=== PATIENT | male | born 1960 | race American Indian/Alaskan Native ===

== ENCOUNTER 2020-06-12 11:17 | Emergency (ER) | payer MEDICARE ==
[2020-06-12 11:43] VITALS: BP 93/58
[2020-06-12] MEDS ORDERED: SODIUM CHLORIDE 0.9% 1000 ML 1,000 ML IV ONE (12:47)
--- NOTE | 2020-06-12 12:54 | Emergency Department Report ---
ED N/V/D HPI - General Chief complaint: Nausea/Vomiting/Diarrhea Stated complaint: DIARRHEA/SEIZURE/CLOUDY THOUGHTS Time Seen by Provider: 06/12/20 12:45 Source: patient Mode of arrival: Ambulatory Limitations: No Limitations - History of Present Illness Initial comments: 59-year-old -[place] male with a known history of seizure disorder currently takes Keppra is a patient at [facility] presents emergency department complaining of a 2-year history of waxing and waning diarrhea which he states is been reemerged this last 2 to 3days. Ports no abdominal pain, no hemoptysis no hematemesis no hematochezia. Ports no nausea vomiting. Reports no fever, chills, sweats no chest pain or palpitations. MD complaint: diarrhea Associated Abdominal Pain: No Radiation: none Severity: mild Consistency: constant Worsens with: none Associated Symptoms: denies: chest pain, headaches, loss of appetite, rash, dysuria, shortness of breath, syncope - Related Data Allergies Allergy/AdvReac Type Severity Reaction Status Date / Time No Known Allergies Allergy Unverified 06/12/20 11:42 ED Review of Systems ROS: Stated complaint: DIARRHEA/SEIZURE/CLOUDY THOUGHTS Other details as noted in HPI Comment: All other systems reviewed and negative ED Past Medical Hx - Past Medical History Previous Medical History?: Yes Hx Seizures: Yes - Social History Smoking Status: Never Smoker Substance Use Type: Alcohol ED Physical Exam - General Limitations: No Limitations General appearance: alert, in no apparent distress - Head Head exam: Present: atraumatic, normocephalic - Eye Eye exam: Present: normal appearance, PERRL, EOMI Pupils: Present: normal accommodation - ENT ENT exam: Present: normal exam, normal orophraynx, mucous membranes moist, TM's normal bilaterally - Neck Neck exam: Present: normal inspection, full ROM - Respiratory Respiratory exam: Present: normal lung sounds bilaterally. Absent: respiratory distress - Cardiovascular Cardiovascular Exam: Present: regular rate, normal rhythm. Absent: systolic murmur, diastolic murmur, rubs, gallop - GI/Abdominal GI/Abdominal exam: Present: soft, normal bowel sounds - Rectal Rectal exam: Present: deferred - Extremities Exam Extremities exam: Present: normal inspection - Back Exam Back exam: Present: normal inspection - Neurological Exam Neurological exam: Present: alert, oriented X3 - Psychiatric Psychiatric exam: Present: normal affect, normal mood - Skin Skin exam: Present: warm, dry, intact, normal color. Absent: rash ED Course Vital Signs 06/12/20 11:42 Temperature 97.8 F Pulse Rate 77 Respiratory 16 Rate Blood Pressure 93/58 [Right] O2 Sat by Pulse 100 Oximetry ED Medical Decision Making - Lab Data Result diagrams: 06/12/20 12:49 06/12/20 12:49 - Medical Decision Making 59-year-old F [place] male with a known history of alcohol abuse and seizure disorder presents emergency department complaining of acute on chronic diarrhea. Awake alert and oriented ambulatory speaking in full sentences during his whole visit last drink was late last night. Laboratory findings showed a pretty benign chemistry with exception of elevated hepatic function studies in the form of his AST and ALT. Discussed with this in great detail with Mr. Cadet which he is aware and is due to follow-up at the [facility]. Also I discussed with him about his habits EtOH abuse and the need to reduce. He was given 1 L of normal saline due to his hypotension. Patient presents to the emergency department with nausea and diarrhea, differential diagnosis includes possible acute gastroenteritis. Abdominal examination without peritoneal signs. No evidence of surgical abdomen or other acute medical emergency including bowel obstruction, viscus perforation, vascular catastrophe, appendicitis, cholecystitis at this time. Presentation not consistent with other acute emergent causes of vomiting and diarrhea at this time. No indication for abdominal imaging Plan supportive care, oral/IV rehydration, patient education about EtOH cessation and reassess. Will not treat with Lomotil due to his elevated liver enzymes but advised him on dietary changes to help compensate his current symptoms Critical care attestation.: If time is entered above; I have spent that time in minutes in the direct care of this critically ill patient, excluding procedure time. ED Disposition Clinical Impression: H/O ETOH abuse, Elevated liver function tests, Diarrhea, Dehydration Disposition: -01 TO HOME OR SELFCARE Is pt being admited?: No Does the pt Need Aspirin: No Condition: Stable Instructions: Abuse of Alcohol (ED), Cirrhosis (ED), Chronic Diarrhea (ED), Acute Diarrhea (ED) Referrals: PRIMARY CARE, [Primary Care Provider] - 3-5 Days [facility] [Outside] - 3-5 Days (Please follow-up with your primary care at the [facility] to continue your alcohol abuse treatment and seizure treatment disorder. Use [id number] medications for your diarrhea)
[2020-06-12 13:16] LABS: Basophils % (Auto) 1.4 % (0.0-1.8); Eosinophils # (Auto) 0.2 K/mm3 (0.0-0.4); Hematocrit 38.4 % (35.5-45.6); Hemoglobin 13.1 gm/dl (11.8-15.2); Lymphocytes # (Auto) 1.1 K/mm3 (1.2-5.4); Lymphocytes % (Auto) 35.9 % (13.4-35.0); Mean Corpuscular HGB Conc 34 % (32-34); Mean Corpuscular Volume 103 fl (84-94); Monocytes # (Auto) 0.4 K/mm3 (0.0-0.8); Red Blood Count 3.74 M/mm3 (3.65-5.03); Red Cell Distribution Width 13.5 % (13.2-15.2)
[2020-06-12 13:18] LABS: Platelet Count 97 K/mm3 (140-440)
[2020-06-12 13:36] LABS: Alanine Aminotransferase 170 units/L (7-56); Albumin 3.8 g/dL (3.9-5); BUN/Creatinine Ratio 10; Blood Urea Nitrogen 9 mg/dL (9-20); Calcium 8.8 mg/dL (8.4-10.2); Hemolysis Index 15
== END 2020-06-12 15:17 | disposition home or self-care (01) ==
LOC: ED 11:17
DX: F10.10 Alcohol abuse, uncomplicated (principal); R94.5 Abnormal results of liver function studies; E86.0 Dehydration; R19.7 Diarrhea, unspecified; Z86.69 Personal history of other diseases of the nervous system and sense organs
CPT/HCPCS: 36415; 80053; 85025; 96360; 96361; 99283; J7030

== ENCOUNTER 2020-07-18 13:32 | Emergency (ER) | payer MEDICARE ==
[2020-07-18 13:51] VITALS: BP 134/76
--- NOTE | 2020-07-18 16:15 | Emergency Department Report ---
ED General Adult HPI - General Chief complaint: Extremity Injury, Upper Stated complaint: LFT ARM PAIN/DIARRHEA/STOMACH Time Seen by Provider: 07/18/20 16:10 Source: patient Mode of arrival: Ambulatory Limitations: No Limitations - History of Present Illness Initial comments: 59-year-old -E[place]ian male comes in complaining of hard of hearing to his left ear that started this morning. Patient states that he has hearing loss in his right ear and states that he has had surgery but does not know what type of surgery. Patient reports that he has a past medical history of seizure disorder and currently is take Keppra. He also reports acid reflux but does not take anything. -: This morning Location: left (Your) Improves with: none Associated Symptoms: denies other symptoms Treatments Prior to Arrival: none - Related Data Allergies Allergy/AdvReac Type Severity Reaction Status Date / Time No Known Allergies Allergy Unverified 06/12/20 11:42 ED Review of Systems ROS: Stated complaint: LFT ARM PAIN/DIARRHEA/STOMACH Other details as noted in HPI Comment: All other systems reviewed and negative ED Past Medical Hx - Past Medical History Previous Medical History?: Yes Hx Seizures: Yes - Surgical History Past Surgical History?: Yes - Social History Smoking Status: Never Smoker Substance Use Type: Alcohol ED Physical Exam - General Limitations: No Limitations General appearance: alert, in no apparent distress - Head Head exam: Present: atraumatic, normocephalic - Eye Eye exam: Present: normal appearance - ENT ENT exam: Present: mucous membranes moist - Expanded ENT Exam Expanded TM/Canal exam: Cerumen Impaction: Left TM (Very soft whitish soft wax), Canal Discharge: Left TM - Neck Neck exam: Present: normal inspection, full ROM - Neurological Exam Neurological exam: Present: alert, oriented X3, normal gait - Psychiatric Psychiatric exam: Present: normal affect, normal mood - Skin Skin exam: Present: warm, dry, intact, normal color. Absent: rash ED Course Vital Signs 07/18/20 13:49 Temperature 97.6 F Pulse Rate 82 Respiratory 20 Rate Blood Pressure 134/76 O2 Sat by Pulse 100 Oximetry ED Medical Decision Making - Medical Decision Making 59-year-old -[place]ian male comes in complaining of hard of hearing to his left ear that started this morning. Patient states that he has hearing loss in his right ear and states that he has had surgery but does not know what type of surgery. Patient reports that he has a past medical history of seizure disorder and currently is take Keppra. He also reports acid reflux but does not take a nything. Discussed with patient that a referral to otolaryngology will be appropriate as patient does not have a cerumen impaction for removal of wax. Nurse reports that patient eloped before discharge paperwork. Critical care attestation.: If time is entered above; I have spent that time in minutes in the direct care of this critically ill patient, excluding procedure time. ED Disposition Clinical Impression: Ear discharge of left ear Disposition: Z-07 ELOPED Is pt being admited?: No Does the pt Need Aspirin: No Condition: Stable
== END 2020-07-18 16:10 | disposition left against medical advice (07) ==
LOC: ED 13:32
DX: H92.12 Otorrhea, left ear (principal); K21.9 Gastro-esophageal reflux disease without esophagitis; R56.9 Unspecified convulsions
CPT/HCPCS: 99281

== ENCOUNTER 2021-07-22 07:25 | Emergency (ER) | payer MEDICARE ==
[2021-07-22 07:33] VITALS: BP 121/78
[2021-07-22] MEDS ORDERED: ONDANSETRON 4 MG ODT TAB PO ONE (07:41)
[2021-07-22] MEDS ORDERED: FAMOTIDINE 20 MG TAB PO ONE (07:41)
--- NOTE | 2021-07-22 07:46 | Emergency Department Report ---
ED Abdominal Pain HPI - General Chief Complaint: Seizure Stated Complaint: FEELS LIKE GOING TO HAVE SEIZURE Time Seen by Provider: 07/22/21 07:33 Source: patient Mode of arrival: Stretcher Limitations: No Limitations - History of Present Illness Initial Comments: CC: "something is wrong HPI: This is a 60 yo male with hx of seizure alcohol dependence and homelessness who presents with vomiting, diarrhea. His mouth began to water. He was concerned for impending seizure. He has abdominal pain. Generalized. Dull. Mild. No radiation. He has loss his sense of taste and smell. He took his home dose of Keppra 3 hours prior to arrival. He was on the [employer] [place] when he became ill. [place] train [place] the [place]. He asked the security at [place] to call EMS. He was tested for COVID at [facility] last month. No known hx of COVID. Last drink of alcohol yesterday. MD Complaint: abdominal pain -: Gradual, Last night Location: diffuse Radiation: none Migration to: no migration Severity: mild Quality: aching, dull Consistency: constant Improves With: nothing Worsens With: nothing Associated Symptoms: nausea, vomiting, diarrhea - Related Data Previous Rx's Medication Instructions Recorded Last Taken Type Omeprazole 40 mg PO DAILY 30 Days #30 07/22/21 Unknown Rx capsule. Ondansetron [Zofran Odt] 4 mg PO Q8HR PRN #10 tab.rapdis 07/22/21 Unknown Rx Allergies Allergy/AdvReac Type Severity Reaction Status Date / Time No Known Allergies Allergy Unverified 06/12/20 11:42 ED Review of Systems ROS: Stated complaint: FEELS LIKE GOING TO HAVE SEIZURE Other details as noted in HPI Comment: All other systems reviewed and negative Constitutional: denies: chills, fever Respiratory: denies: cough Gastrointestinal: abdominal pain, nausea, vomiting, diarrhea ED Past Medical Hx - Past Medical History Previous Medical History?: Yes Hx Seizures: Yes - Surgical History Past Surgical History?: No - Social History Smoking Status: Never Smoker Substance Use Type: Alcohol - Medications Home Medications: Home Medications Medication Instructions Recorded Confirmed Last Taken Type Omeprazole 40 mg PO DAILY 30 Days #30 07/22/21 Unknown Rx capsule.dr Nicholsondansetron [Zofran Odt] 4 mg PO Q8HR PRN #10 tab.rapdis 07/22/21 Unknown Rx ED Physical Exam - General Limitations: No Limitations General appearance: alert, in no apparent distress, other (Appears chronically ill, disheveled clothing, 3 large bags at the bedside) - Head Head exam: Present: atraumatic, normocephalic - Eye Eye exam: Present: conjunctival injection - ENT ENT exam: Present: mucous membranes moist - Neck Neck exam: Present: normal inspection. Absent: tenderness, meningismus - Respiratory Respiratory exam: Present: normal lung sounds bilaterally. Absent: respiratory distress, wheezes, rales, rhonchi - Cardiovascular Cardiovascular Exam: Present: regular rate, normal rhythm, normal heart sounds. Absent: systolic murmur, diastolic murmur, rubs, gallop - GI/Abdominal GI/Abdominal exam: Present: soft, normal bowel sounds. Absent: distended, tenderness, guarding, rebound - Rectal Rectal exam: Present: deferred - Extremities Exam Extremities exam: Present: normal inspection - Neurological Exam Neurological exam: Present: alert, oriented X3 - Psychiatric Psychiatric exam: Present: normal affect, normal mood - Skin Skin exam: Present: warm, dry, intact, normal color. Absent: rash ED Course Vital Signs 07/22/21 07:32 Temperature 98.7 F Pulse Rate 77 Respiratory 16 Rate Blood Pressure 121/78 [Right] ED Medical Decision Making - Lab Data Result diagrams: 07/22/21 07:48 07/22/21 07:48 - Medical Decision Making CBC within normal limits with exception of mild anemia. AST ALT chronically elevated suspect alcoholic liver disease. Lipase equivocal range. Patient does not have severe pain to indicate acute pancreatitis. Differential diagnosis includes pancreatitis, peptic ulcer disease, alcoholic gastritis. Prescribed Zofran and omeprazole. No evidence of alcohol withdrawal. In the emergency department patient received famotidine and Zofran. Critical care attestation.: If time is entered above; I have spent that time in minutes in the direct care of this critically ill patient, excluding procedure time. ED Disposition Clinical Impression: Gastritis Disposition: HOME / SELF CARE / HOMELESS Is pt being admited?: No Does the pt Need Aspirin: No Condition: Stable Instructions: Gastritis, Adult, [id number] Prescriptions: Omeprazole 40 mg PO DAILY 30 Days #30 capsule. Ondansetron [Zofran Odt] 4 mg PO Q8HR PRN #10 tab.rapdis PRN Reason: Nausea Referrals: CARBUCCIA,JUAN CARLOS, MD [Staff Physician] - 3-5 Days
[2021-07-22 08:09] LABS: Basophils # (Auto) 0.1 K/mm3 (0.0-0.1); Basophils % (Auto) 1.6 % (0.0-1.8); Eosinophils # (Auto) 0.2 K/mm3 (0.0-0.4); Eosinophils % (Auto) 5.1 % (0.0-4.3); Hemoglobin 10.7 gm/dl (11.8-15.2); Lymphocytes # (Auto) 1.6 K/mm3 (1.2-5.4); Lymphocytes % (Auto) 43.1 % (13.4-35.0); Mean Corpuscular HGB Conc 33 % (32-34); Mean Corpuscular Volume 96 fl (84-94); Monocytes # (Auto) 0.5 K/mm3 (0.0-0.8); Monocytes % (Auto) 12.8 % (0.0-7.3); Platelet Count 150 K/mm3 (140-440); Red Blood Count 3.34 M/mm3 (3.65-5.03); Red Cell Distribution Width 16.5 % (13.2-15.2)
[2021-07-22 08:31] LABS: Alanine Aminotransferase 100 units/L (7-56); Albumin 3.5 g/dL (3.9-5); BUN/Creatinine Ratio 9; Blood Urea Nitrogen 7 mg/dL (9-20); Calcium 8.6 mg/dL (8.4-10.2); Hemolysis Index 7
== END 2021-07-22 08:55 | disposition home or self-care (01) ==
LOC: ED 07:25
DX: K29.70 Gastritis, unspecified, without bleeding (principal); R56.9 Unspecified convulsions
CPT/HCPCS: 36415; 80053; 83690; 85025; 99283; Q0162

== ENCOUNTER 2021-11-24 15:48 | Emergency (ER) | payer MEDICARE ==
[2021-11-24 17:48] VITALS: BP 113/73
[2021-11-24 19:02] LABS: Basophils # (Auto) 0.1 K/mm3 (0.0-0.1); Eosinophils # (Auto) 0.2 K/mm3 (0.0-0.4); Eosinophils % (Auto) 3.4 % (0.0-4.3); Monocytes # (Auto) 0.6 K/mm3 (0.0-0.8)
[2021-11-24 19:30] LABS: Basophils % (Auto) 1.2 % (0.0-1.8); Hematocrit 35.1 % (35.5-45.6); Hemoglobin 10.9 gm/dl (11.8-15.2); Lymphocytes % (Auto) 46.1 % (13.4-35.0); Mean Corpuscular HGB Conc 31 % (32-34); Mean Corpuscular Volume 90 fl (84-94); Platelet Count 168 K/mm3 (140-440); Red Blood Count 3.92 M/mm3 (3.65-5.03); Red Cell Distribution Width 20.2 % (13.2-15.2)
[2021-11-24 19:31] LABS: Lymphocytes # (Auto) 2.6 K/mm3 (1.2-5.4)
[2021-11-24 20:26] LABS: Alanine Aminotransferase 107 units/L (7-56); Albumin 3.7 g/dL (3.9-5); BUN/Creatinine Ratio 14; Blood Urea Nitrogen 13 mg/dL (9-20); Calcium 8.8 mg/dL (8.4-10.2); Hemolysis Index 14
[2021-11-24] MEDS ORDERED: KETOROLAC 30 MG/1 ML INJ IV ONE (21:32)
[2021-11-24] MEDS ORDERED: SODIUM CHLORIDE 0.9% 1000 ML 1,000 ML IV ONE (21:32)
[2021-11-24] MEDS ORDERED: FAMOTIDINE 20 MG/2 ML INJ IV ONE (21:32)
[2021-11-24] MEDS ORDERED: ONDANSETRON 4 MG/2 ML INJ IV ONE (21:32)
[2021-11-24 21:59] LABS: Bilirubin,Urine NEG (Negative); Blood,Urine NEG (Negative); Color,Urine Yellow (Yellow); Protein,Urine <15 mg/dL mg/dL (Negative); Urobilinogen,Urine < 2.0 mg/dL (<2.0)
--- NOTE | 2021-11-24 22:02 | Emergency Department Report ---
ED Abdominal Pain HPI - General Chief Complaint: Abdominal Pain Stated Complaint: GENERAL ILLNESS Source: patient Mode of arrival: Ambulatory Limitations: No Limitations - History of Present Illness Initial Comments: Patient is a 60-year-old -[place] male with a history of chronic alcohol abuse and seizures who presents to the ED with complaint of acute onset persistent nausea, vomiting, diarrhea and epigastric abdominal pain for the last 12 hours. Patient states that he woke up with persistent nausea and vomiting and diarrhea with epigastric pain which has been persistent throughout the day. Patient states that he has had multiple vomiting and diarrhea episodes and that the pain in the epigastric area worsens with vomiting episode. Patient denies hematemesis, hemoptysis, hematochezia, dizziness, syncope, chest pain, shortness of breath, cough, sore throat, fever and chills, headache, syncope or seizures and dizziness. MD Complaint: abdominal pain (Epigastric pain), other (Nausea and vomiting and diarrhea) -: Sudden, hour(s) (12) Location: periumbilical, epigastric Radiation: none Migration to: no migration Severity scale (0 -10): 7 Quality: cramping, sharp Consistency: intermittent Improves With: nothing Worsens With: eating, vomiting Context: possible food poisoning Associated Symptoms: denies other symptoms, nausea, vomiting, diarrhea - Related Data Previous Rx's Medication Instructions Recorded Last Taken Type Omeprazole 40 mg PO DAILY 30 Days #30 07/22/21 Unknown Rx capsule. Ondansetron [Zofran Odt] 4 mg PO Q8HR PRN #10 tab.rapdis 07/22/21 Unknown Rx Dicyclomine [Bentyl] 20 mg PO Q6H PRN #30 tablet 11/24/21 Unknown Rx Famotidine [Pepcid] 20 mg PO Q12H #30 tablet 11/24/21 Unknown Rx Ondansetron [Zofran Odt] 4 mg PO Q8HR PRN #20 tab.rapdis 11/24/21 Unknown Rx Allergies Allergy/AdvReac Type Severity Reaction Status Date / Time No Known Allergies Allergy Unverified 06/12/20 11:42 ED Review of Systems ROS: Stated complaint: GENERAL ILLNESS Other details as noted in HPI Constitutional: denies: chills, fever Eyes: denies: eye pain, eye discharge, vision change ENT: denies: ear pain, throat pain Respiratory: denies: cough, shortness of breath, wheezing Cardiovascular: denies: chest pain, palpitations Endocrine: no symptoms reported Gastrointestinal: abdominal pain, nausea, vomiting, diarrhea Genitourinary: denies: urgency, dysuria Musculoskeletal: denies: back pain, joint swelling, arthralgia Skin: denies: rash, lesions Neurological: denies: headache, weakness, paresthesias Psychiatric: denies: anxiety, depression Hematological/Lymphatic: denies: easy bleeding, easy bruising ED Past Medical Hx - Past Medical History Previous Medical History?: Yes Hx Seizures: Yes - Surgical History Past Surgical History?: No - Social History Smoking Status: Never Smoker Substance Use Type: Alcohol - Medications Home Medications: Home Medications Medication Instructions Recorded Confirmed Last Taken Type Omeprazole 40 mg PO DAILY 30 Days #30 07/22/21 Unknown Rx capsule. Ondansetron [Zofran Odt] 4 mg PO Q8HR PRN #10 tab.rapdis 07/22/21 Unknown Rx Dicyclomine [Bentyl] 20 mg PO Q6H PRN #30 tablet 11/24/21 Unknown Rx Famotidine [Pepcid] 20 mg PO Q12H #30 tablet 11/24/21 Unknown Rx Ondansetron [Zofran Odt] 4 mg PO Q8HR PRN #20 tab.rapdis 11/24/21 Unknown Rx ED Physical Exam - General Limitations: No Limitations General appearance: alert, in no apparent distress - Head Head exam: Present: atraumatic, normocephalic, normal inspection - Eye Eye exam: Present: normal appearance, PERRL, EOMI Pupils: Present: normal accommodation - ENT ENT exam: Present: normal exam, normal orophraynx, mucous membranes moist, TM's normal bilaterally, normal external ear exam - Neck Neck exam: Present: normal inspection, full ROM - Respiratory Respiratory exam: Present: normal lung sounds bilaterally. Absent: respiratory distress, wheezes, rales, stridor, chest wall tenderness, accessory muscle use, decreased breath sounds, prolonged expiratory - Cardiovascular Cardiovascular Exam: Present: regular rate, normal rhythm, normal heart sounds. Absent: systolic murmur, diastolic murmur, rubs, gallop - GI/Abdominal GI/Abdominal exam: Present: soft, tenderness (Palpable mild epigastric tenderness), normal bowel sounds. Absent: guarding, rebound, hyperactive bowel sounds, hypoactive bowel sounds, organomegaly - Extremities Exam Extremities exam: Present: normal inspection, full ROM, normal capillary refill - Back Exam Back exam: Present: normal inspection, full ROM. Absent: tenderness, CVA tenderness (R), CVA tenderness (L), muscle spasm, paraspinal tenderness, vertebral tenderness - Neurological Exam Neurological exam: Present: alert, oriented X3, CN II-XII intact, normal gait, reflexes normal - Psychiatric Psychiatric exam: Present: normal affect, normal mood - Skin Skin exam: Present: warm, dry, intact, normal color. Absent: rash ED Course Vital Signs 11/24/21 17:25 Temperature 97.9 F Pulse Rate 79 Respiratory 18 Rate Blood Pressure 113/73 O2 Sat by Pulse 97 Oximetry ED Medical Decision Making - Lab Data Result diagrams: 11/24/21 18:37 11/24/21 18:37 - Radiology Data Radiology results: report reviewed, [place] [address] Cat Scan Report Signed Patient: PARAG CONNELL MR#: [id number] 2 : 1960 Acct:[id number] Age/Sex: 60 / M ADM Date: 11/24/21 Loc: ED Attending Dr: Ordering Physician: EMMETT SHETH Date of Service: 11/24/21 Procedure(s): CT abdomen pelvis w con Accession Number(s): [id number] cc: EMMETT SHETH CT abdomen pelvis w con INDICATION / CLINICAL INFORMATION: Pt complains of abdominal pain with N/V/D. TECHNIQUE: Axial CT imaging of abdomen and pelvis was obtained with 100 mL Omnipaque 300 IV contrast. Coronal and sagittal reformatted imaging obtained and reviewed. All CT scans at this location are performed using CT dose reduction for ALARA by means of automated exposure control. COMPARISON: None available. FINDINGS: CT abdomen with IV contrast demonstrates normal appearance of the liver, spleen, pancreas, kidneys, and adrenal glands. Gallbladder is unremarkable. Abdominal aorta contains small amount of calcified plaque but is not aneurysmal. CT pelvis with contrast does not demonstrate focal mass, free fluid, or focal inflammatory change. There are several loops of fluid-filled small bowel throughout the pelvis with mild mucosal enhancement. The appearance is very suggestive for enteritis. The colon is unremarkable. Normal appendix is identified in the right lower quadrant. Prostate gland is mildly enlarged. Visualized lung bases are grossly clear. No acute osseous abnormality. IMPRESSION: 1. The appearance of the small bowel within the pelvis is highly suggestive for enteritis. Please correlate with clinical symptoms and presentation. 2. No other significant acute finding. Signer Name: Britta Irene MD Signed: 11/24/2021 10:28 PM Workstation Name: [id number] Transcribed By: Dictated By: Britta Irene MD Electronically Authenticated By: Britta Irene MD Signed Date/Time: 11/24/212227 DD/ 24 TD/TT: - Medical Decision Making This is a 60-year-old -Angolan male with a history of chronic alcohol abuse and seizures who presents to the ED with complaint of acute onset persistent nausea, vomiting, diarrhea and epigastric abdominal pain for the last 12 hours. Patient states that he woke up with persistent nausea and vomiting and diarrhea with epigastric pain which has been persistent throughout the day. Patient states that he has had multiple vomiting and diarrhea episodes and that the pain in the epigastric area worsens with vomiting episode. In the ED, patient is alert and oriented x3 and is not in any distress. Patient is hemodynamically stable. Lab test results were reviewed and showed elevated LFTs, including AST of 191 and ALT of 107 and elevated lipase level of 110. Patient was treated for pain in the ED, also treated for nausea and vomiting and given antacids and also normal saline 1 L IV bolus x1. Abdomen pelvis CT scan showed the appearance of the small bowel within the pelvis is highly suggestive for enteritis. Please correlate with clinical symptoms and presentation. Oth erwise no other significant acute finding. On reevaluation, patient pain is well controlled medication. Patient will discharge home on medications and advised to follow-up with his primary care physician in 5 to 7 days for reevaluation. Patient was also advised to maintain a clear liquid diet for 12 to 24 hours, while taking medications and drinking fluids. Patient was advised to return to the ED immediately if symptoms get worse. - Differential Diagnosis Gastroenteritis; dehydration; GERD; UTI; Critical care attestation.: If time is entered above; I have spent that time in minutes in the direct care of this critically ill patient, excluding procedure time. ED Disposition Clinical Impression: Viral gastroenteritis, Nausea, vomiting and diarrhea, Abdominal pain in male Disposition: 01 HOME / SELF CARE / HOMELESS Is pt being admited?: No Does the pt Need Aspirin: No Condition: Stable Instructions: Viral Gastroenteritis, Adult, [id number], Nausea and Vomiting, Adult, [id number], Diarrhea, Adult, [id number], Abdominal Pain, Adult, [id number] Additional Instructions: Abdomen pelvis CT scan with contrast showed no acute abnormalities except for a pattern of enteritis which is likely viral. Lab test results were reviewed and showed elevated LFTs with his consistent with a viral syndrome. Therefore maintain a clear liquid diet for 12 to 24 hours, drink plenty fluids, take medication as needed for nausea and vomiting and pain. Follow-up with your primary care physician in 5 to 7 days for reevaluation. Return to the ED i mmediately if symptoms get worse. Prescriptions: Dicyclomine [Bentyl] 20 mg PO Q6H PRN #30 tablet PRN Reason: Abdominal pain Famotidine [Pepcid] 20 mg PO Q12H #30 tablet Ondansetron [Zofran Odt] 4 mg PO Q8HR PRN #20 tab.rapdis PRN Reason: Nausea Referrals: [facility] [Provider Group] - 3-5 Days Time of Disposition: 22:56 Print Language: TANZANIAN
[2021-11-24 22:07] LABS: RBC,Urine < 1.0 /HPF (0.0-6.0); WBC,Urine < 1.0 /HPF (0.0-6.0)
--- NOTE | 2021-11-24 22:33 | Cat Scan Report ---
CT abdomen pelvis w con INDICATION / CLINICAL INFORMATION: Pt complains of abdominal pain with N/V/D. TECHNIQUE: Axial CT imaging of abdomen and pelvis was obtained with 100 mL Omnipaque 300 IV contrast. Coronal an d sagittal reformatted imaging obtained and reviewed. All CT scans at this location are performed us ing CT dose reduction for ALARA by means of automated exposure control. COMPARISON: None available. FINDINGS: CT abdomen with IV contrast demonstrates normal appearance of the liver, spleen, pancreas, kidneys, a nd adrenal glands. Gallbladder is unremarkable. Abdominal aorta contains small amount of calcified pl aque but is not aneurysmal. CT pelvis with contrast does not demonstrate focal mass, free fluid, or focal inflammatory change. Th ere are several loops of fluid-filled small bowel throughout the pelvis with mild mucosal enhancement . The appearance is very suggestive for enteritis. The colon is unremarkable. Normal appendix is iden tified in the right lower quadrant. Prostate gland is mildly enlarged. Visualized lung bases are grossly clear. No acute osseous abnormality. IMPRESSION: 1. The appearance of the small bowel within the pelvis is highly suggestive for enteritis. Please cor relate with clinical symptoms and presentation. 2. No other significant acute finding. Signer Name: Britta Irene MD Signed: 11/24/2021 10:28 PM Workstation Name: [id number]
[2021-11-24] MEDS ORDERED: levETIRAcetam 500 MG TAB PO ONE (22:53)
== END 2021-11-24 23:43 | disposition home or self-care (01) ==
LOC: ED 15:48
DX: A08.4 Viral intestinal infection, unspecified (principal); R11.2 Nausea with vomiting, unspecified; R10.9 Unspecified abdominal pain
CPT/HCPCS: 36415; 74177; 80053; 81001; 83690; 85025; 96361; 96374; 96375; 99284; J1885; J2405; J3490; J7030; Q9967; Q0162

== ENCOUNTER 2021-12-11 15:33 | Emergency (ER) | payer MEDICARE ==
[2021-12-11 16:23] VITALS: BP 107/66
== END 2021-12-11 18:33 | disposition left against medical advice (07) ==
LOC: ED 15:33
DX: R10.9 Unspecified abdominal pain (principal); R19.7 Diarrhea, unspecified; Z53.21 Procedure and treatment not carried out due to patient leaving prior to being seen by health care provider

== ENCOUNTER 2021-12-17 07:58 | Emergency (ER) | payer MEDICARE ==
[2021-12-17 08:04] VITALS: BP 117/79
[2021-12-17] MEDS ORDERED: LOPERAMIDE 2 MG CAP PO ONE (08:26)
[2021-12-17] MEDS ORDERED: DICYCLOMINE 20 MG TAB PO ONE (08:26)
--- NOTE | 2021-12-17 08:26 | Emergency Department Report ---
ED General Adult HPI - General Chief complaint: Abdominal Pain Stated complaint: ABD PAIN Time Seen by Provider: 12/17/21 08:11 Source: patient Mode of arrival: Ambulatory Limitations: No Limitations - History of Present Illness Initial comments: Patient presents secondary to chronic abdominal pain, chronic diarrhea, and seizures. He admits that he is homeless. He states that he has had diarrhea for years. He is still having it. He reports his abdomen hurts for years. It still hurts. He states that it feels like he is having seizures in his head. He denies fevers or chills. There is no cough or congestion. Has had no vomiting or bloody stool. He has not been exposed to anyone that has been ill that he is known, but he does state he is homeless and does not really sure. He does not know if he had food poisoning. Regardless, he just wants to be checked out today. He does state that he was supposed to be on Keppra for seizures. He has been seen here for his abdominal complaints previously. Based on record review, he was seen here within the last week and had labs and CT obtained. - Related Data Previous Rx's Medication Instructions Recorded Last Taken Type Omeprazole 40 mg PO DAILY 30 Days #30 07/22/21 Unknown Rx capsule. Ondansetron [Zofran Odt] 4 mg PO Q8HR PRN #10 tab.rapdis 07/22/21 Unknown Rx Ondansetron [Zofran Odt] 4 mg PO Q8HR PRN #20 tab.rapdis 11/24/21 Unknown Rx Dicyclomine [Bentyl] 20 mg PO Q6H PRN #30 tablet 12/17/21 Unknown Rx Famotidine [Pepcid] 20 mg PO Q12H #30 tablet 12/17/21 Unknown Rx Loperamide HCl [Imodium A-D] 2 mg PO 4XD PRN #20 cap 12/17/21 Unknown Rx Allergies Allergy/AdvReac Type Severity Reaction Status Date / Time No Known Allergies Allergy Verified 12/11/21 16:23 ED Review of Systems ROS: Stated complaint: ABD PAIN Other details as noted in HPI Comment: All other systems reviewed and negative Constitutional: denies: fever Eyes: denies: vision change ENT: denies: throat pain Respiratory: denies: cough Cardiovascular: denies: chest pain Endocrine: denies: unexplained weight loss Gastrointestinal: as per HPI Genitourinary: denies: dysuria Musculoskeletal: denies: back pain Skin: denies: rash Neurological: denies: headache Hematological/Lymphatic: denies: easy bruising ED Past Medical Hx - Past Medical History Previous Medical History?: Yes Hx Seizures: Yes Additional medical history: Concussion - Surgical History Past Surgical History?: Yes Additional Surgical History: "Head surgery for brain concussion" - Family History Family history: no significant - Social History Smoking Status: Never Smoker Substance Use Type: Alcohol, Other (Patient is homeless.) - Medications Home Medications: Home Medications Medication Instructions Recorded Confirmed Last Taken Type Omeprazole 40 mg PO DAILY 30 Days #30 07/22/21 Unknown Rx capsule. Ondansetron [Zofran Odt] 4 mg PO Q8HR PRN #10 tab.rapdis 07/22/21 Unknown Rx Ondansetron [Zofran Odt] 4 mg PO Q8HR PRN #20 tab.rapdis 11/24/21 Unknown Rx Dicyclomine [Bentyl] 20 mg PO Q6H PRN #30 tablet 12/17/21 Unknown Rx Famotidine [Pepcid] 20 mg PO Q12H #30 tablet 12/17/21 Unknown Rx Loperamide HCl [Imodium A-D] 2 mg PO 4XD PRN #20 cap 12/17/21 Unknown Rx ED Physical Exam - General Limitations: No Limitations, Other (Pulse ox noted and normal) General appearance: alert, in no apparent distress, other (Disheveled) - Head Head exam: Present: atraumatic, normocephalic - Eye Eye exam: Present: normal appearance, PERRL, EOMI. Absent: scleral icterus - ENT ENT exam: Present: normal orophraynx, normal external ear exam - Neck Neck exam: Present: normal inspection. Absent: meningismus - Respiratory Respiratory exam: Present: normal lung sounds bilaterally. Absent: respiratory distress - Cardiovascular Cardiovascular Exam: Present: regular rate, normal rhythm - GI/Abdominal GI/Abdominal exam: Present: soft. Absent: distended, tenderness, pulsatile mass - Extremities Exam Extremities exam: Present: normal capillary refill - Back Exam Back exam: Absent: CVA tenderness (R), CVA tenderness (L) - Neurological Exam Neurological exam: Present: alert, oriented X3, CN II-XII intact, normal gait. Absent: motor sensory deficit - Psychiatric Psychiatric exam: Present: normal affect, normal mood - Skin Skin exam: Present: warm, dry ED Course Vital Signs 12/17/21 08:02 Temperature 98.7 F Pulse Rate 82 Respiratory 18 Rate Blood Pressure 117/79 O2 Sat by Pulse 98 Oximetry - Reevaluation(s) Reevaluation #1: 12/17/21 08:33 Old records noted. Medications were ordered. Patient was discharged. ED Medical Decision Making - Medical Decision Making Patient presents secondary to chronic abdominal pain. He has no acute component. He has no peritoneal finding on exam. There is no rebound or guarding. I am not concerned for ischemic bowel. He has no pulsatile mass to suggest AAA. He certainly does not appear to have hepatitis or pancreatitis given the fact that he does not have jaundice or intractable vomiting. He does report chronic diarrhea. Etiology for this is unclear. He has not had any known sick contact that would suggest an enteritis. He has not had a toxic exposure that he can recall. He does not have distention or tympany suggestive of bowel obstruction. He also stated that he felt like he was having seizures in his head. There is no external sign of seizure. He was referred for outpatient follow-up. Critical Care Time: No Critical care attestation.: If time is entered above; I have spent that time in minutes in the direct care of this critically ill patient, excluding procedure time. ED Disposition Clinical Impression: Chronic abdominal pain, Chronic diarrhea, Homeless Disposition: 01 HOME / SELF CARE / HOMELESS Is pt being admited?: No Condition: Stable Instructions: Abdominal Pain, Adult, Chronic Diarrhea Additional Instructions: Drink fluids. Return for problems. Follow-up with the referral physician as directed. Prescriptions: Dicyclomine [Bentyl] 20 mg PO Q6H PRN #30 tablet PRN Reason: Abdominal pain Loperamide HCl [Imodium A-D] 2 mg PO 4XD PRN #20 cap PRN Reason: Diarrhea Famotidine [Pepcid] 20 mg PO Q12H #30 tablet Referrals: ANJEL CANTU MD [Staff Physician] - 3-5 Days
[2021-12-17] MEDS ORDERED: levETIRAcetam 500 MG TAB PO ONE (08:34)
== END 2021-12-17 09:19 | disposition home or self-care (01) ==
LOC: ED 07:58
DX: R10.9 Unspecified abdominal pain (principal); K52.9 Noninfective gastroenteritis and colitis, unspecified; Z59.00 Homelessness unspecified; Z98.890 Other specified postprocedural states
CPT/HCPCS: 99282

== ENCOUNTER 2022-02-05 14:40 | Emergency (ER) | payer MEDICARE ==
[2022-02-05] MEDS ORDERED: SODIUM CHLORIDE 0.9% 1000 ML 1,000 ML IV ONE (17:51)
[2022-02-05] MEDS ORDERED: METOCLOPRAMIDE 10 MG/2 ML INJ IV ONE (17:51)
[2022-02-05] MEDS ORDERED: FAMOTIDINE 20 MG/2 ML INJ IV ONE (17:51)
[2022-02-05] MEDS ORDERED: diphenhydrAMINE 50 MG/ML VIAL IV ONE (17:51)
[2022-02-05 18:29] LABS: Bilirubin,Urine NEG (Negative); Blood,Urine NEG (Negative); Color,Urine Yellow (Yellow); Mucus,Urine FEW /HPF; Protein,Urine <15 mg/dL mg/dL (Negative)
[2022-02-05 18:47] LABS: Basophils # (Auto) 0.1 K/mm3 (0.0-0.1); Eosinophils # (Auto) 0.2 K/mm3 (0.0-0.4); Hematocrit 33.5 % (35.5-45.6); Hemoglobin 10.7 gm/dl (11.8-15.2); Lymphocytes # (Auto) 2.5 K/mm3 (1.2-5.4); Mean Corpuscular HGB Conc 32 % (32-34); Mean Corpuscular Volume 91 fl (84-94); Monocytes # (Auto) 0.7 K/mm3 (0.0-0.8); Monocytes % (Auto) 12.5 % (0.0-7.3); Platelet Count 144 K/mm3 (140-440); Red Blood Count 3.68 M/mm3 (3.65-5.03); Red Cell Distribution Width 17.8 % (13.2-15.2)
[2022-02-05 20:13] LABS: Alanine Aminotransferase 72 units/L (7-56); Albumin 3.6 g/dL (3.9-5); BUN/Creatinine Ratio 15; Blood Urea Nitrogen 12 mg/dL (9-20); Hemolysis Index 0
--- NOTE | 2022-02-05 21:08 | Cat Scan Report ---
CT abdomen pelvis w con INDICATION / CLINICAL INFORMATION: abd pain with n/v diarrhea. TECHNIQUE: Axial CT imaging of abdomen and pelvis was obtained with IV contrast. Coronal and sagittal reformatte d imaging obtained and reviewed. All CT scans at this location are performed using CT dose reduction for ALARA by means of automated exposure control. COMPARISON: CT abdomen/pelvis 11/24/2021 FINDINGS: CT abdomen with contrast demonstrates grossly normal appearance of the liver, spleen, pancreas, kidne ys, and adrenal glands. Gallbladder is present and without obvious abnormality. No biliary dilatation . Abdominal aorta contains a small amount of calcified plaque but is not aneurysmal. CT pelvis with contrast demonstrates mildly enlarged prostate gland. Otherwise no pelvic mass, free f luid, or focal inflammatory change. A normal appendix is present in the right lower quadrant. GI trac t is grossly normal. Visualized lung bases are clear. No acute osseous abnormality noted. IMPRESSION: 1. No acute finding within the abdomen or pelvis. Signer Name: Britta Irene MD Signed: 02/05/2022 9:04 PM Workstation Name: [id number]
--- NOTE | 2022-02-05 21:45 | Emergency Department Report ---
ED Abdominal Pain HPI - General Chief Complaint: Abdominal Pain Stated Complaint: ABD PAIN/DIARRHEA Time Seen by Provider: 02/05/22 17:00 Source: patient Mode of arrival: Ambulatory Limitations: No Limitations - History of Present Illness Initial Comments: This is a 61-year-old male nontoxic, well nourished in appearance, no acute signs of distress presents to the ED with c/o of nausea and vomiting and abdominal pain and diarrhea several days. Patient describes vomiting as food content and yellow gastric acid. Patient describes abdominal pain as cramping and aching with level of 8/10 diffuse. Patient denies chest pain, short of breath, fever, hemoptysis, blood in stool, chills, headache, stiff neck, numbness or tingling. Patient denies any constipation. Denies any blood in stool. Patient denies any recent travels. Patient denies any drug allergies. Patient stated drinks alcohol chronically and refuses help. MD Complaint: abdominal pain -: days(s) Location: diffuse Radiation: none Migration to: no migration Severity: mild Severity scale (0 -10): 8 Quality: cramping, aching Consistency: constant Improves With: nothing Worsens With: nothing Associated Symptoms: nausea, vomiting. denies: diarrhea, fever, chills, constipation, dysuria, hematemesis, hematochezia, melena, hematuria, anorexia, syncope - Related Data Previous Rx's Medication Instructions Recorded Last Taken Type Omeprazole 40 mg PO DAILY 30 Days #30 07/22/21 Unknown Rx capsule. Ondansetron [Zofran Odt] 4 mg PO Q8HR PRN #10 tab.akanksha 07/22/21 Unknown Rx Ondansetron [Zofran Odt] 4 mg PO Q8HR PRN #20 tab.vinnydis 11/24/21 Unknown Rx Dicyclomine [Bentyl] 20 mg PO Q6H PRN #30 tablet 12/17/21 Unknown Rx Famotidine [Pepcid] 20 mg PO Q12H #30 tablet 12/17/21 Unknown Rx Loperamide HCl [Imodium A-D] 2 mg PO 4XD PRN #20 cap 12/17/21 Unknown Rx Ondansetron [Zofran Odt] 4 mg PO Q8HR PRN #12 tab.akanksha 02/05/22 Unknown Rx Allergies Allergy/AdvReac Type Severity Reaction Status Date / Time No Known Allergies Allergy Verified 02/05/22 20:26 ED Review of Systems ROS: Stated complaint: ABD PAIN/DIARRHEA Other details as noted in HPI Constitutional: denies: chills, fever Eyes: denies: eye pain, eye discharge, vision change ENT: denies: ear pain, throat pain Respiratory: denies: cough, shortness of breath, wheezing Cardiovascular: denies: chest pain, palpitations Endocrine: no symptoms reported Gastrointestinal: abdominal pain, nausea, vomiting, diarrhea. denies: constipation, hematemesis, melena, hematochezia Genitourinary: denies: urgency, dysuria Musculoskeletal: denies: back pain, joint swelling, arthralgia Skin: denies: rash, lesions Neurological: denies: headache, weakness, paresthesias Psychiatric: denies: anxiety, depression Hematological/Lymphatic: denies: easy bleeding, easy bruising ED Past Medical Hx - Past Medical History Hx Seizures: Yes Additional medical history: Concussion - Surgical History Additional Surgical History: "Head surgery for brain concussion" - Social History Smoking Status: Never Smoker Substance Use Type: None - Medications Home Medications: Home Medications Medication Instructions Recorded Confirmed Last Taken Type Omeprazole 40 mg PO DAILY 30 Days #30 07/22/21 02/05/22 Unknown Rx capsule. Ondansetron [Zofran Odt] 4 mg PO Q8HR PRN #10 tab.rapdis 07/22/21 02/05/22 Unknown Rx Ondansetron [Zofran Odt] 4 mg PO Q8HR PRN #20 tab.rapdis 11/24/21 02/05/22 Unknown Rx Dicyclomine [Bentyl] 20 mg PO Q6H PRN #30 tablet 12/17/21 02/05/22 Unknown Rx Famotidine [Pepcid] 20 mg PO Q12H #30 tablet 12/17/21 02/05/22 Unknown Rx Loperamide HCl [Imodium A-D] 2 mg PO 4XD PRN #20 cap 12/17/21 02/05/22 Unknown Rx Ondansetron [Zofran Odt] 4 mg PO Q8HR PRN #12 tab.rapdis 02/05/22 Unknown Rx ED Physical Exam - General Limitations: No Limitations General appearance: alert, in no apparent distress - Head Head exam: Present: atraumatic, normocephalic - Eye Eye exam: Present: normal appearance - Neck Neck exam: Present: normal inspection, full ROM. Absent: lymphadenopathy - Respiratory Respiratory exam: Present: normal lung sounds bilaterally. Absent: respiratory distress, wheezes, rales, rhonchi, stridor, chest wall tenderness, accessory muscle use, decreased breath sounds, prolonged expiratory - Cardiovascular Cardiovascular Exam: Present: regular rate, normal rhythm, normal heart sounds. Absent: bradycardia, tachycardia, irregular rhythm, systolic murmur, diastolic murmur, rubs, gallop - GI/Abdominal GI/Abdominal exam: Present: soft, tenderness (diffuse), normal bowel sounds. Absent: distended, guarding, rebound, rigid, diminished bowel sounds - Extremities Exam Extremities exam: Present: full ROM - Back Exam Back exam: Present: normal inspection, full ROM. Absent: tenderness, CVA tenderness (R), CVA tenderness (L), muscle spasm, paraspinal tenderness, vertebral tenderness, rash noted - Neurological Exam Neurological exam: Present: alert, oriented X3, normal gait - Psychiatric Psychiatric exam: Present: normal affect, normal mood - Skin Skin exam: Present: warm, dry, intact, normal color. Absent: rash ED Course Vital Signs 02/05/22 02/05/22 15:19 20:22 Temperature 98.3 F 98.4 F Pulse Rate 96 H 73 Respiratory 16 20 Rate Blood Pressure 136/80 126/67 [Left] O2 Sat by Pulse 100 100 Oximetry - Reevaluation(s) Reevaluation #1: 02/05/22 21:43 Patient is speaking in full sentences with no signs of distress noted. ED Medical Decision Making - Lab Data Result diagrams: 02/05/22 17:42 02/05/22 17:42 Lab Results 02/05/22 02/05/22 02/05/22 Range/Units 17:42 17:42 17:54 WBC 6.0 (4.5-11.0) K/mm3 RBC 3.68 (3.65-5.03) M/mm3 Hgb 10.7 L (11.8-15.2) gm/dl Hct 33.5 L (35.5-45.6) % MCV 91 (84-94) fl MCH 29 (28-32) pg MCHC 32 (32-34) % RDW 17.8 H (13.2-15.2) % Plt Count 144 (140-440) K/mm3 Lymph % (Auto) 42.0 H (13.4-35.0) % Mccreary % (Auto) 12.5 H (0.0-7.3) % Eos % (Auto) 3.0 (0.0-4.3) % Baso % (Auto) 1.0 (0.0-1.8) % Lymph # (Auto) 2.5 (1.2-5.4) K/mm3 Mccreary # (Auto) 0.7 (0.0-0.8) K/mm3 Eos # (Auto) 0.2 (0.0-0.4) K/mm3 Baso # (Auto) 0.1 (0.0-0.1) K/mm3 Seg Neutrophils % 41.5 (40.0-70.0) % Seg Neutrophils # 2.5 (1.8-7.7) K/mm3 Sodium 141 (137-145) mmol/L Potassium 4.3 (3.6-5.0) mmol/L Chloride 105.5 (98-107) mmol/L Carbon Dioxide 22 (22-30) mmol/L Anion Gap 18 mmol/L BUN 12 (9-20) mg/dL Creatinine 0.8 (0.8-1.3) mg/dL Estimated GFR > 60 ml/min BUN/Creatinine Ratio 15 % Glucose 87 (75-100) mg/dL Calcium 9.0 (8.4-10.2) mg/dL Total Bilirubin 0.60 (0.1-1.2) mg/dL AST 154 H (5-40) units/L ALT 72 H (7-56) units/L Alkaline Phosphatase 128 (35-129) units/L Total Protein 9.2 H (6.3-8.2) g/dL Albumin 3.6 L (3.9-5) g/dL Albumin/Globulin Ratio 0.6 % Lipase 171 H (13-60) units/L Urine Color Yellow (Yellow) Urine Turbidity Clear (Clear) Urine pH 5.0 (5.0-7.0) Ur Specific [place] 1.017 (1.003-1.030) Urine Protein <15 mg/dl (Negative) mg/dL Urine Glucose (UA) Neg (Negative) mg/dL Urine Ketones Neg (Negative) mg/dL Urine Blood Neg (Negative) Urine Nitrite Neg (Negative) Urine Bilirubin Neg (Negative) Urine Urobilinogen 4.0 (<2.0) mg/dL Ur Leukocyte Esterase Tr (Negative) Urine WBC (Auto) 6.0 (0.0-6.0) /HPF Urine RBC (Auto) 1.0 (0.0-6.0) /HPF U Epithel Cells (Auto) 4.0 (0-13.0) /HPF Urine Mucus Few /HPF - Radiology Data [facility] [address] [id number] Cat Scan Report Signed Patient: PARAG CONNELL MR#: [id number] 2 : 1960 Acct:[id number] Age/Sex: 61 / M ADM Date: 02/05/22 Loc: ED Attending Dr: Ordering Physician: RONDA ROTHMAN NP Date of Service: 02/05/22 Procedure(s): CT abdomen pelvis w con Accession Number(s): [id number] cc: RONDA ROTHMAN NP CT abdomen pelvis w con INDICATION / CLINICAL INFORMATION: abd pain with n/v diarrhea. TECHNIQUE: Axial CT imaging of abdomen and pelvis was obtained with IV contrast. Coronal and sagittal reformatted imaging obtained and reviewed. All CT scans at this location are performed using CT dose reduction for ALARA by means of automated exposure control. COMPARISON: CT abdomen/pelvis 11/24/2021 FINDINGS: CT abdomen with contrast demonstrates grossly normal appearance of the liver, spleen, pancreas, kidneys, and adrenal glands. Gallbladder is present and without obvious abnormality. No biliary dilatation. Abdominal aorta contains a small amount of calcified plaque but is not aneurysmal. CT pelvis with contrast demonstrates mildly enlarged prostate gland. Otherwise no pelvic mass, free fluid, or focal inflammatory change. A normal appendix is present in the right lower quadrant. GI tract is grossly normal. Visualized lung bases are clear. No acute osseous abnormality noted. IMPRESSION: 1. No acute finding within the abdomen or pelvis. Signer Name: Britta Irene MD Signed: 02/05/2022 9:04 PM Workstation Name: [id number] Transcribed By: JR Dictated By: Britta Irene MD Electronically Authenticated By: Britta Irene MD Signed Date/Time: 02/05/222103 DD/ 00 TD/TT: - Medical Decision Making This is a 61-year-old male that presents with abdominal pain. Patient is stable and was examined by me. Labs obtained. UA obtained. CT of abdomen obtained and dictated by the radiologist. Patient is notified of the report with no questions noted by the patient. Vital signs are stable prior to discharge. Patient received medical treatment in the ED which patient stated symptoms has resovled and subsided. Was instructed note to operate any machinery due to possible drowsiness and stated someone will drive the patient home. A by mouth challenge has been obtained and patient tolerated well with no nausea vomiting. Patient was also instructed to Follow-up with a primary care doctor in 3-5 days or if symptoms worsen and continue return to emergency room as soon as possible. At time of discharge, the patient does not seem toxic or ill in appearance. No acute signs of distress noted. Patient agrees to discharge treatment plan of care. No further questions noted by the patient. Critical care attestation.: If time is entered above; I have spent that time in minutes in the direct care of this critically ill patient, excluding procedure time. ED Disposition Clinical Impression: Elevated LFTs Abdominal pain Qualifiers: Abdominal location: generalized Qualified Code(s): R10.84 - Generalized abdominal pain Nausea & vomiting Qualifiers: Vomiting type: unspecified Qualified Code(s): R11.2 - Nausea with vomiting, unspecified Disposition: 01 HOME / SELF CARE / HOMELESS Is pt being admited?: No Does the pt Need Aspirin: No Condition: Stable Instructions: Nausea and Vomiting, Adult, Abdominal Pain, Adult, [id number] Additional Instructions: Follow-up with a primary care and clinical social work therapist doctor in 3-5 days or if symptoms worsen and continue return to emergency room as soon as possible. Prescriptions: Ondansetron [Zofran Odt] 4 mg PO Q8HR PRN #12 tab.rapdis PRN Reason: Nausea Referrals: JUAN CARLOS PARKINSON MD [Primary Care Provider] - 3-5 Days PRIMARY CAREMD [Referring] - 3-5 Days [facility] [Provider Group] - 3-5 Days Time of Disposition: 21:44
[2022-02-05 22:03] VITALS: BP 116/80
== END 2022-02-05 22:03 | disposition home or self-care (01) ==
LOC: ED 14:40
DX: R74.01 Elevation of levels of liver transaminase levels (principal); R10.9 Unspecified abdominal pain; R11.2 Nausea with vomiting, unspecified
CPT/HCPCS: 36415; 74177; 80053; 81001; 83690; 85025; 96361; 96374; 96375; 99284; J1200; J2765; J3490; J7030; Q9967

== ENCOUNTER 2022-04-19 16:55 | Emergency (ER) | payer MEDICARE ==
[2022-04-19 17:05] VITALS: BP 116/64
== END 2022-04-19 20:00 | disposition left against medical advice (07) ==
LOC: ED 16:55
DX: R52 Pain, unspecified (principal); Z53.21 Procedure and treatment not carried out due to patient leaving prior to being seen by health care provider

== ENCOUNTER 2022-06-21 18:06 | Emergency (ER) | payer MEDICARE ==
[2022-06-22 04:02] LABS: Basophils # (Auto) 0.1 K/mm3 (0.0-0.1); Basophils % (Auto) 0.9 % (0.0-1.8); Eosinophils # (Auto) 0.2 K/mm3 (0.0-0.4); Eosinophils % (Auto) 3.6 % (0.0-4.3); Hematocrit 29.4 % (35.5-45.6); Hemoglobin 9.8 gm/dl (11.8-15.2); Lymphocytes # (Auto) 1.9 K/mm3 (1.2-5.4); Lymphocytes % (Auto) 31.6 % (13.4-35.0); Mean Corpuscular HGB Conc 33 % (32-34); Mean Corpuscular Volume 87 fl (84-94); Monocytes # (Auto) 0.9 K/mm3 (0.0-0.8); Platelet Count 183 K/mm3 (140-440); Red Blood Count 3.38 M/mm3 (3.65-5.03); Red Cell Distribution Width 17.6 % (13.2-15.2)
[2022-06-22 04:20] LABS: Blood Urea Nitrogen 10 mg/dL (9-20); Calcium 8.1 mg/dL (8.4-10.2); Hemolysis Index 15
[2022-06-22 04:47] LABS: BUN/Creatinine Ratio 14
[2022-06-22] MEDS ORDERED: SODIUM CHLORIDE 0.9% 1000 ML 1,000 ML IV ONE (06:31)
--- NOTE | 2022-06-22 07:13 | Emergency Department Report ---
<MARIANNE GENAO - Last Filed: 06/22/22 07:10> ED N/V/D HPI - General Chief complaint: Abdominal Pain Stated complaint: ABD PAIN/SEIZURE Time Seen by Provider: 06/22/22 00:46 Source: patient Mode of arrival: Ambulatory Limitations: No Limitations - History of Present Illness MD complaint: nausea, vomiting, diarrhea, abdominal pain -: Gradual, week(s) (1) Description of Vomiting: food contents, watery Description of Diarrhea: water Location: LUQ, RUQ, epigastric Radiation: none Severity: mild, moderate Quality: stabbing, aching Consistency: constant Improves with: none Worsens with: none Context: possible food poisoning Associated Symptoms: malaise, nausea/vomiting. denies: chest pain, cough, diaphoresis, loss of appetite, shortness of breath, syncope - Related Data Previous Rx's Medication Instructions Recorded Last Taken Type Omeprazole 40 mg PO DAILY 30 Days #30 07/22/21 Unknown Rx capsule. Ondansetron [Zofran Odt] 4 mg PO Q8HR PRN #10 tab.rapdis 07/22/21 Unknown Rx Ondansetron [Zofran Odt] 4 mg PO Q8HR PRN #20 tab.rapdis 11/24/21 Unknown Rx Dicyclomine [Bentyl] 20 mg PO Q6H PRN #30 tablet 12/17/21 Unknown Rx Famotidine [Pepcid] 20 mg PO Q12H #30 tablet 12/17/21 Unknown Rx Loperamide HCl [Imodium A-D] 2 mg PO 4XD PRN #20 cap 12/17/21 Unknown Rx Ondansetron [Zofran Odt] 4 mg PO Q8HR PRN #12 tab.rapdis 02/05/22 Unknown Rx metroNIDAZOLE [Flagyl] 500 mg PO Q12HR 7 Days #14 tab NS 06/22/22 Unknown Rx Allergies Allergy/AdvReac Type Severity Reaction Status Date / Time No Known Allergies Allergy Verified 02/05/22 20:26 ED Review of Systems Comment: All other systems reviewed and negative ED Past Medical Hx - Past Medical History Hx Seizures: Yes Additional medical history: Concussion - Surgical History Additional Surgical History: "Head surgery for brain concussion" - Social History Smoking Status: Never Smoker Substance Use Type: None - Medications Home Medications: Home Medications Medication Instructions Recorded Confirmed Last Taken Type Omeprazole 40 mg PO DAILY 30 Days #30 07/22/21 02/05/22 Unknown Rx capsule. Ondansetron [Zofran Odt] 4 mg PO Q8HR PRN #10 tab.rapdis 07/22/21 02/05/22 Unknown Rx Ondansetron [Zofran Odt] 4 mg PO Q8HR PRN #20 tab.rapdis 11/24/21 02/05/22 Unknown Rx Dicyclomine [Bentyl] 20 mg PO Q6H PRN #30 tablet 12/17/21 02/05/22 Unknown Rx Famotidine [Pepcid] 20 mg PO Q12H #30 tablet 12/17/21 02/05/22 Unknown Rx Loperamide HCl [Imodium A-D] 2 mg PO 4XD PRN #20 cap 12/17/21 02/05/22 Unknown Rx Ondansetron [Zofran Odt] 4 mg PO Q8HR PRN #12 tab.rapdis 02/05/22 Unknown Rx metroNIDAZOLE [Flagyl] 500 mg PO Q12HR 7 Days #14 tab NS 06/22/22 Unknown Rx ED Physical Exam - General Limitations: No Limitations General appearance: alert, in no apparent distress - Head Head exam: Present: atraumatic, normocephalic - Eye Eye exam: Present: normal appearance - ENT ENT exam: Present: mucous membranes moist - Neck Neck exam: Present: normal inspection - Respiratory Respiratory exam: Present: normal lung sounds bilaterally. Absent: respiratory distress - Cardiovascular Cardiovascular Exam: Present: regular rate, normal rhythm. Absent: systolic murmur, diastolic murmur, rubs, gallop - GI/Abdominal GI/Abdominal exam: Present: soft, tenderness, normal bowel sounds, other (No Rovsing, no Bonilla Dillard, no Long sign, no tenderness at McBurney's. No [place] sign. No pulsatile mass. ). Absent: guarding, rebound, rigid, organomegaly, mass, bruit - Rectal Rectal exam: Present: deferred - Extremities Exam Extremities exam: Present: normal inspection, normal capillary refill - Back Exam Back exam: Present: normal inspection. Absent: CVA tenderness (R), CVA tendern ess (L) - Neurological Exam Neurological exam: Present: alert, oriented X3, CN II-XII intact, normal gait - Psychiatric Psychiatric exam: Present: normal affect, normal mood. Absent: flat affect, homicidal ideation, suicidal ideation - Skin Skin exam: Present: warm, dry, intact, normal color. Absent: rash, diaphoretic ED Medical Decision Making - Lab Data Result diagrams: 06/22/22 03:43 06/22/22 03:43 - Medical Decision Making 61-year-old F [place] male [facility] emergency department with abdominal pain initially of unclear etiology with with the findings of the labs with elevated lipase at 633 is likely cause of pancreatitis pain has been going on for over a week so unsure if pancreatitis is on the upslope or downslope. We will obtain a CT scan to to determine if there is some inflammation around the pancreas or to what extent this lipase may be elevated. At this present time it appears that Ms. Cadet will require admission to further treat and evaluate his pancreatitis but will sign the patient out to the attending to follow-up on the CT scan and administer further care Patient signed out to Dr. Gates ED Disposition Clinical Impression: Colitis Abdominal pain Qualifiers: Abdominal location: unspecified location Qualified Code(s): R10.9 - Unspecified abdominal pain Disposition: HOME / SELF CARE / HOMELESS Condition: Stable Instructions: Abdominal Pain, Adult, [id number] Additional Instructions: Start with bland diet advance as tolerated Increase your daily fluid to help your hydration Please take and complete your antibiotics as prescribed Call and schedule follow-up with your primary doctor in the next 3 to 4 days for progress Please do not hesitate to call or return to emergency room if your symptoms worsen Prescriptions: metroNIDAZOLE [Flagyl] 500 mg PO Q12HR 7 Days #14 tab NS Referrals: JUAN CARLOS PARKINSON MD [Primary Care Provider] - 3-5 Days <VERONICA GATES - Last Filed: 06/22/22 11:46> ED Review of Systems ROS: Stated complaint: ABD PAIN/SEIZURE Other details as noted in HPI ED Course Vital Signs 06/21/22 06/22/22 06/22/22 19:51 08:33 10:08 Temperature 97.9 F 98.5 F Pulse Rate 80 79 Respiratory 16 18 Rate Blood Pressure 136/83 Blood Pressure 148/87 [Right] O2 Sat by Pulse 97 99 98 Oximetry - Reevaluation(s) Reevaluation #1: 06/22/22 11:43 This patient signed out to me with abdominal pain waiting for CT scan of the abdomen/pelvic for concern with pancreatitis with elevated lipase. CT scan revealed no abnormal pancreas but suggestive of nonspecific colitis--at this time patient requested food and wanted to go home. Labs reviewed ED Medical Decision Making - Lab Data Result diagrams: 06/22/22 03:43 06/22/22 03:43 Critical care attestation.: If time is entered above; I have spent that time in minutes in the direct care of this critically ill patient, excluding procedure time. ED Disposition Is pt being admited?: No Does the pt Need Aspirin: No
[2022-06-22] MEDS ORDERED: ONDANSETRON 4 MG/2 ML INJ IV STA (07:17)
--- NOTE | 2022-06-22 08:22 | Cat Scan Report ---
CT ABDOMEN AND PELVIS WITH CONTRAST HISTORY: abd pain COMPARISON: 02/05/2022 TECHNIQUE: Axial CT images were obtained through the abdomen and pelvis after 100 cc of IV contrast. Sagittal and coronal reformatted images. All CT scans at this location are performed using CT dose re duction for ALARA by means of automated exposure control. FINDINGS: CT ABDOMEN: Lung Bases: Clear. Liver: No significant abnormality. Biliary: No significant abnormality. Spleen: No significant abnormality. Unenlarged. Pancreas: No significant abnormality. Adrenals: No significant abnormality. Kidneys: No significant abnormality. Lymphatics: No lymphadenopathy. Vasculature: Mild atherosclerotic disease in the distal aorta and iliac arteries without acute abnorm ality. Bowel/Peritoneum: Trace free fluid is identified in the pelvis and right paracolic gutter which is ab normal in a male patient. I question if mild thickening of the colon wall is present in areas suggest ing a possible colitis. The stomach, small bowel loops and appendix are unremarkable. No evidence for free air or abscess. No bowel obstruction. CT PELVIS: : No significant abnormality. Osseous Structures: Nothing acute. Mild degenerative changes in the thoracolumbar spine. No suspiciou s bony lesion. Additional Findings: None IMPRESSION: Trace fluid is identified in the abdomen as described. There is questionable mild thickening of the c olon suggesting a nonspecific colitis. Please correlate with the patient's clinical presentation. Signer Name: Cory Nicholson Jr, MD Signed: 06/22/2022 8:18 AM Workstation Name: [id number]
[2022-06-22] MEDS ORDERED: levETIRAcetam 500 MG TAB PO ONE (08:23)
[2022-06-22 10:09] VITALS: BP 148/87
== END 2022-06-22 12:10 | disposition home or self-care (01) ==
LOC: ED 18:06
DX: K52.9 Noninfective gastroenteritis and colitis, unspecified (principal); R10.9 Unspecified abdominal pain
CPT/HCPCS: 36415; 74177; 80048; 83690; 85025; 96374; 99284; J2405; J7030; Q9967; 99282

== ENCOUNTER 2022-07-12 18:08 | Emergency (ER) | payer MEDICARE ==
[2022-07-12] MEDS ORDERED: ONDANSETRON 4 MG ODT TAB PO ONE (23:09)
[2022-07-12 23:56] LABS: Basophils # (Auto) 0.1 K/mm3 (0.0-0.1); Basophils % (Auto) 1.6 % (0.0-1.8); Eosinophils # (Auto) 0.2 K/mm3 (0.0-0.4); Eosinophils % (Auto) 3.7 % (0.0-4.3); Hematocrit 27.7 % (35.5-45.6); Hemoglobin 9.2 gm/dl (11.8-15.2); Lymphocytes # (Auto) 2.6 K/mm3 (1.2-5.4); Lymphocytes % (Auto) 41.6 % (13.4-35.0); Mean Corpuscular HGB Conc 33 % (32-34); Mean Corpuscular Volume 88 fl (84-94); Monocytes # (Auto) 0.8 K/mm3 (0.0-0.8); Monocytes % (Auto) 12.4 % (0.0-7.3); Platelet Count 171 K/mm3 (140-440); Red Blood Count 3.14 M/mm3 (3.65-5.03); Red Cell Distribution Width 18.8 % (13.2-15.2)
[2022-07-13 00:06] LABS: Alanine Aminotransferase 62 units/L (7-56); Albumin 3.2 g/dL (3.9-5); BUN/Creatinine Ratio 21; Blood Urea Nitrogen 17 mg/dL (9-20); Calcium 8.3 mg/dL (8.4-10.2); Hemolysis Index 60
[2022-07-13] MEDS ORDERED: ONDANSETRON 4 MG/2 ML INJ IV ONE (02:10)
[2022-07-13] MEDS ORDERED: SODIUM CHLORIDE 0.9% 1000 ML 1,000 ML IV ONE (02:10)
--- NOTE | 2022-07-13 02:15 | Emergency Department Report ---
ED General Adult HPI - General Chief complaint: Pain General Stated complaint: ABD PAIN, DIARRHEA,LETG PAIN Time Seen by Provider: 07/12/22 23:08 Source: patient Mode of arrival: Ambulatory Limitations: No Limitations - History of Present Illness Initial comments: Is a 61-year-old male with history of seizures. Who presents for abdominal pain generalized for 1 week. Patient denies EtOH. Pain described as 5/10 aching. Pain is generalized nonradiating. Patient denies dysuria frequency urgency or hematuria. Last bowel movement 2 days ago. Patient denies fever does endorse body aches. Symptoms are relieved by nothing tried. Symptoms are exacerbated by p.o. intake. Severity scale (0 -10): 3 - Related Data Previous Rx's Medication Instructions Recorded Last Taken Type Ondansetron [Zofran Odt] 4 mg PO Q8HR PRN #10 tab.rapdis 07/22/21 Unknown Rx Ondansetron [Zofran Odt] 4 mg PO Q8HR PRN #20 tab.rapdis 11/24/21 Unknown Rx Famotidine [Pepcid] 20 mg PO Q12H #30 tablet 12/17/21 Unknown Rx Loperamide HCl [Imodium A-D] 2 mg PO 4XD PRN #20 cap 12/17/21 Unknown Rx Ondansetron [Zofran Odt] 4 mg PO Q8HR PRN #12 tab.rapdis 02/05/22 Unknown Rx metroNIDAZOLE [Flagyl] 500 mg PO Q12HR 7 Days #14 tab NS 06/22/22 Unknown Rx Dicyclomine [Bentyl] 20 mg PO Q6H PRN #30 tablet 07/13/22 Unknown Rx Omeprazole 40 mg PO DAILY 30 Days #30 07/13/22 Unknown Rx capsule. traMADoL [Ultram] 50 mg PO Q6HR PRN #12 tablet 07/13/22 Unknown Rx Allergies Allergy/AdvReac Type Severity Reaction Status Date / Time No Known Allergies Allergy Verified 02/05/22 20:26 ED Review of Systems ROS: Stated complaint: ABD PAIN, DIARRHEA,LETG PAIN Other details as noted in HPI Constitutional: malaise. denies: chills, fever Eyes: denies: eye pain, eye discharge, vision change ENT: denies: ear pain, throat pain, congestion Respiratory: denies: cough, shortness of breath, wheezing Cardiovascular: denies: chest pain, palpitations Endocrine: no symptoms reported Gastrointestinal: abdominal pain, nausea. denies: vomiting, diarrhea, constipation, hematemesis, melena, hematochezia Genitourinary: denies: urgency, dysuria, frequency, hematuria Musculoskeletal: denies: back pain, joint swelling, arthralgia Skin: denies: rash, lesions Neurological: denies: headache, weakness, paresthesias, vertigo Psychiatric: denies: anxiety, depression Hematological/Lymphatic: denies: easy bleeding, easy bruising ED Past Medical Hx - Past Medical History Hx Seizures: Yes Additional medical history: Concussion - Surgical History Additional Surgical History: "Head surgery for brain concussion" - Social History Smoking Status: Current Every Day Smoker - Medications Home Medications: Home Medications Medication Instructions Recorded Confirmed Last Taken Type Ondansetron [Zofran Odt] 4 mg PO Q8HR PRN #10 tab.rapdis 07/22/21 02/05/22 Unknown Rx Ondansetron [Zofran Odt] 4 mg PO Q8HR PRN #20 tab.rapdis 11/24/21 02/05/22 Unknown Rx Famotidine [Pepcid] 20 mg PO Q12H #30 tablet 12/17/21 02/05/22 Unknown Rx Loperamide HCl [Imodium A-D] 2 mg PO 4XD PRN #20 cap 12/17/21 02/05/22 Unknown Rx Ondansetron [Zofran Odt] 4 mg PO Q8HR PRN #12 tab.rapdis 02/05/22 Unknown Rx metroNIDAZOLE [Flagyl] 500 mg PO Q12HR 7 Days #14 tab NS 06/22/22 Unknown Rx Dicyclomine [Bentyl] 20 mg PO Q6H PRN #30 tablet 07/13/22 Unknown Rx Omeprazole 40 mg PO DAILY 30 Days #30 07/13/22 Unknown Rx capsule. traMADoL [Ultram] 50 mg PO Q6HR PRN #12 tablet 07/13/22 Unknown Rx ED Physical Exam - General Limitations: No Limitations General appearance: alert, in no apparent distress - Head Head exam: Present: normocephalic, normal inspection - Eye Eye exam: Present: PERRL, EOMI Pupils: Present: normal accommodation - ENT ENT exam: Present: mucous membranes moist - Neck Neck exam: Present: normal inspection, full ROM. Absent: tenderness, lymphadenopathy - Respiratory Respiratory exam: Present: normal lung sounds bilaterally. Absent: respiratory distress, wheezes, stridor, chest wall tenderness - Cardiovascular Cardiovascular Exam: Present: regular rate, normal rhythm, normal heart sounds - GI/Abdominal GI/Abdominal exam: Present: soft, tenderness (Left upper quadrant), normal bowel sounds. Absent: distended, guarding, rebound, rigid, bruit, hernia - Expanded GI/Abdominal Exam Expanded GI/Abdominal exam: Absent: psoas sign, obturator sign, heel tap sign, Long's sign, Rovsing's sign, tenderness at Mcburney's Point, ascites - Rectal Rectal exam: Present: deferred - Extremities Exam Extremities exam: Present: normal inspection, full ROM, normal capillary refill - Back Exam Back exam: Present: normal inspection, full ROM. Absent: CVA tenderness (R), CVA tenderness (L) - Neurological Exam Neurological exam: Present: alert, oriented X3, CN II-XII intact, normal gait - Psychiatric Psychiatric exam: Present: normal affect, normal mood - Skin Skin exam: Present: warm, dry, intact, normal color. Absent: rash ED Course Vital Signs 07/12/22 18:21 Temperature 98.7 F Pulse Rate 94 H Respiratory 16 Rate Blood Pressure 119/74 [Right] O2 Sat by Pulse 97 Oximetry ED Medical Decision Making - Lab Data Result diagrams: 07/12/22 23:25 07/12/22 23:25 Labs 07/12/22 07/12/22 23:25 23:25 WBC 6.2 RBC 3.14 L Hgb 9.2 L Hct 27.7 L MCV 88 MCH 29 MCHC 33 RDW 18.8 H Plt Count 171 Lymph % (Auto) 41.6 H [place] % (Auto) 12.4 H Eos % (Auto) 3.7 Baso % (Auto) 1.6 Lymph # (Auto) 2.6 [place] # (Auto) 0.8 Eos # (Auto) 0.2 Baso # (Auto) 0.1 Seg Neutrophils % 40.7 Seg Neutrophils # 2.5 Sodium 138 Potassium 4.6 Chloride 105.5 Carbon Dioxide 18 L Anion Gap 19 BUN 17 Creatinine 0.8 Estimated GFR > 60 BUN/Creatinine Ratio 21 Glucose 164 H Calcium 8.3 L Total Bilirubin 0.40 AST 113 H ALT 62 H Alkaline Phosphatase 119 Total Protein 8.0 Albumin 3.2 L Albumin/Globulin Ratio 0.7 Lipase 468 H - Radiology Data Radiology results: report reviewed, image reviewed CT abdomen pelvis w con INDICATION / CLINICAL INFORMATION: Abdominal Pain. TECHNIQUE: Axial CT imaging of abdomen and pelvis was obtained with 100 mL Omnipaque 300 IV contrast. Coronal and sagittal reformatted imaging obtained and reviewed. All CT scans at this location are performed using CT dose reduction for ALARA by means of automated exposure control. COMPARISON: Recent prior CT 06/22/2022 FINDINGS: CT abdomen with contrast demonstrates normal appearance of the liver, spleen, pancreas, kidneys, and adrenal glands. Gallbladder is grossly unremarkable. No biliary dilatation. Abdominal aorta is normal. CT pelvis with contrast does not demonstrate any pelvic mass or focal inflammatory process. A normal appendix is present in the right lower quadrant. Previously noted trace amount of fluid in the right paracolic gutter is no longer identified. The GI tract is unremarkable. I see no evidence of colitis or other acute finding on today's exam. Urinary bladder is unremarkable. Prostate gland is mildly enlarged. Visualized lung bases are clear. No acute osseous abnormality noted. IMPRESSION: 1. No acute abnormality within the abdomen or pelvis. 2. Previously noted trace free fluid and questionable colonic wall thickening have resolved. Signer Name: Britta Irene MD Signed: 07/13/2022 3:35 AM Workstation Name: [id number] Transcribed By: Dictated By: Britta Irene MD Electronically Authenticated By: Britta Irene MD Signed Date/Time: 07/13/22 0335 DD/ 0328 TD/TT: - Medical Decision Making CT normal no acute pancreatitis no diverticulitis no other soft tissue abnormality. Patient currently tolerating p.o. intake without nausea vomiting advises pain is resolved. Plan DC to home with prescriptions. Follow-up with primary care doctor in 2 to 3 days. Patient verbalized agreement and under standing of discharge plan. Patient DC'd home in stable condition at this time. Critical care attestation.: If time is entered above; I have spent that time in minutes in the direct care of this critically ill patient, excluding procedure time. ED Disposition Clinical Impression: Abdominal pain Qualifiers: Abdominal location: left upper quadrant Qualified Code(s): R10.12 - Left upper quadrant pain Disposition: 01 HOME / SELF CARE / HOMELESS Is pt being admited?: No Does the pt Need Aspirin: No Condition: Stable Instructions: Abdominal Pain, Adult Additional Instructions: Take medications as prescribed, continue to hydrate as directed, follow-up with your doctor in 2 to 3 days. Return to emergency department should symptoms worsen Prescriptions: Dicyclomine [Bentyl] 20 mg PO Q6H PRN #30 tablet PRN Reason: Abdominal pain Omeprazole 40 mg PO DAILY 30 Days #30 capsule. traMADoL [Ultram] 50 mg PO Q6HR PRN #12 tablet PRN Reason: Pain Referrals: ANJEL CANTU MD [Staff Physician] - 3-5 Days Forms: Work/School Release Form(ED) Time of Disposition: 04:02
--- NOTE | 2022-07-13 03:39 | Cat Scan Report ---
CT abdomen pelvis w con INDICATION / CLINICAL INFORMATION: Abdominal Pain. TECHNIQUE: Axial CT imaging of abdomen and pelvis was obtained with 100 mL Omnipaque 300 IV contrast. Coronal an d sagittal reformatted imaging obtained and reviewed. All CT scans at this location are performed us ing CT dose reduction for ALARA by means of automated exposure control. COMPARISON: Recent prior CT 06/22/2022 FINDINGS: CT abdomen with contrast demonstrates normal appearance of the liver, spleen, pancreas, kidneys, and adrenal glands. Gallbladder is grossly unremarkable. No biliary dilatation. Abdominal aorta is normal . CT pelvis with contrast does not demonstrate any pelvic mass or focal inflammatory process. A normal appendix is present in the right lower quadrant. Previously noted trace amount of fluid in the right paracolic gutter is no longer identified. The GI tract is unremarkable. I see no evidence of colitis or other acute finding on today's exam. Urinary bladder is unremarkable. Prostate gland is mildly enl arged. Visualized lung bases are clear. No acute osseous abnormality noted. IMPRESSION: 1. No acute abnormality within the abdomen or pelvis. 2. Previously noted trace free fluid and questionable colonic wall thickening have resolved. Signer Name: Britta Irene MD Signed: 07/13/2022 3:35 AM Workstation Name: [id number]
[2022-07-13 04:38] VITALS: BP 141/77
== END 2022-07-13 04:39 | disposition home or self-care (01) ==
LOC: ED 18:08
DX: R10.9 Unspecified abdominal pain (principal); R56.9 Unspecified convulsions; F17.200 Nicotine dependence, unspecified, uncomplicated
CPT/HCPCS: 36415; 74177; 80053; 83690; 85025; 96361; 96374; 99284; J2405; J7030; Q9967; J3490; Q0162

== ENCOUNTER 2022-07-20 16:57 | Emergency (ER) | payer MEDICARE ==
[2022-07-20 17:28] VITALS: BP 124/67
== END 2022-07-20 22:15 | disposition left against medical advice (07) ==
LOC: ED 16:57
DX: R10.9 Unspecified abdominal pain (principal); Z53.21 Procedure and treatment not carried out due to patient leaving prior to being seen by health care provider